=== PATIENT | female | born 1960 | race African-American/Black ===

== ENCOUNTER 2021-11-03 09:00 | Outpatient (CLI) | payer OTHER ==
[2021-11-03 16:10] LABS: SARS-CoV-2 PCR by NAA Not Detected (NotDetected)
== END 2021-11-03 09:01 | disposition home or self-care (01) ==
LOC: CSHLAB 09:00
PROVIDERS: ATTEND Internal Medicine Gastroenterology
DX: Z20.822 Contact with and (suspected) exposure to COVID-19 (principal); Z12.11 Encounter for screening for malignant neoplasm of colon
CPT/HCPCS: U0003; U0005

== ENCOUNTER 2021-11-06 07:43 | Day surgery (SDC) | payer OTHER ==
[2021-11-03 16:03] VITALS: BMI 34.1
[~2021-11-06 07:43] MED LIST: Lidocaine 1% PF 5 ML VIAL ONE; PROPOFOL 60 ML ONE
[2021-11-06] MEDS ORDERED: Lidocaine 1% MPF 2 ML VIAL ONE (08:44)
== END 2021-11-06 11:26 | disposition home or self-care (01) ==
LOC: CSHSDC 07:43
PROVIDERS: ATTEND Internal Medicine Gastroenterology
PROC: 0DJD8ZZ Inspection of Lower Intestinal Tract, Via Natural or Artificial Opening Endoscopic (ICD-10-PCS; principal; 2021-11-06)
DX: Z12.11 Encounter for screening for malignant neoplasm of colon (principal); K57.30 Diverticulosis of large intestine without perforation or abscess without bleeding; K64.9 Unspecified hemorrhoids; D64.9 Anemia, unspecified; I10 Essential (primary) hypertension; K21.9 Gastro-esophageal reflux disease without esophagitis; Z87.891 Personal history of nicotine dependence
CPT/HCPCS: J2704

== ENCOUNTER 2022-03-25 10:07 | Outpatient (CLI) | payer OTHER | END 2022-03-25 10:08 | disposition home or self-care (01) | LOC: EDBD → CSHLAB 10:07 | PROVIDERS: ATTEND Internal Medicine Hematology & Oncology | DX: Z20.822 Contact with and (suspected) exposure to COVID-19 (principal); C90.00 Multiple myeloma not having achieved remission; C79.51 Secondary malignant neoplasm of bone | CPT/HCPCS: 87811 ==